=== PATIENT | male | born 1975 | race Two or more races ===

== ENCOUNTER 2021-07-21 09:58 | Emergency (ER) | payer OTHER ==
[~2021-07-21] VITALS: Ht 175.3 cm; Wt 113.4 kg
[~2021-07-21 09:58] MED LIST: RELAGESIC TABLE1 TAB PO
== END 2021-07-21 13:31 | disposition home or self-care (01) ==
LOC: ER 09:58
DX: B34.9 Viral infection, unspecified (principal); Z20.822 Contact with and (suspected) exposure to COVID-19

== ENCOUNTER 2022-01-04 19:20 | Emergency (ER) | payer OTHER ==
[~2022-01-04] VITALS: Ht 175.3 cm; Wt 115.7 kg
[2022-01-04] MEDS ORDERED: CIPRO500 MG PO (22:19)
[2022-01-04] MEDS ORDERED: PEPCID AC20 MG PO (22:19)
[2022-01-04] MEDS ORDERED: ZOFRAN8 MG PO (22:19)
== END 2022-01-04 22:35 | disposition home or self-care (01) ==
LOC: ER 19:20
DX: K52.9 Noninfective gastroenteritis and colitis, unspecified (principal); R11.2 Nausea with vomiting, unspecified; Z20.822 Contact with and (suspected) exposure to COVID-19

== ENCOUNTER 2022-01-06 23:31 | Emergency (ER) | payer OTHER ==
[~2022-01-06] VITALS: Ht 175.3 cm; Wt 113.4 kg
[~2022-01-06 23:31] MED LIST changes: +CIPRO500 MG PO; +PEPCID AC20 MG PO; +ZOFRAN8 MG PO
[2022-01-07] MEDS ORDERED: ADALAT CC30 MG PO (05:06)
== END 2022-01-07 05:12 ==
LOC: ER 23:31
DX: I10 Essential (primary) hypertension (principal); R51.9 Headache, unspecified

== ENCOUNTER 2022-01-13 14:42 | Emergency (ER) | payer OTHER ==
[~2022-01-13] VITALS: Ht 175.3 cm; Wt 115.7 kg
[~2022-01-13 14:42] MED LIST changes: +ADALAT CC30 MG PO
[2022-01-13] MEDS ORDERED: NIFEDIPINE20 MG PO (14:52)
== END 2022-01-13 18:45 | disposition home or self-care (01) ==
LOC: ER 14:42
DX: I10 Essential (primary) hypertension (principal)